=== PATIENT | female | born 1955 | race Caucasian/White ===

== ENCOUNTER 2018-04-05 11:24 | Emergency (ER) | payer MEDICARE, OTHER ==
[~2018-04-05] VITALS: Ht 170.2 cm; Wt 119.4 kg
[2018-04-05] MEDS ORDERED: aspirin 81mg tab.chew PO ONE (11:45)
[2018-04-05] MEDS ORDERED: ondansetron/PF 4mg/2ml inj IV ONE (11:55)
[2018-04-05] MEDS ORDERED: fentaNYL/PF 50MCG/1 ML 2ML syringe IV ONE (11:55)
[2018-04-05] MEDS ORDERED: labetalol 20mg/4ml (5mg/ml) syringe IV ONE (11:55)
[2018-04-05 12:19] LABS: BASOPHILS % (AUTO) 0.2 % (0-1); EOSINOPHILS # (AUTO) 0.1 X10'3 (0-0.9); EOSINOPHILS % (AUTO) 1.1 % (0-6); HEMATOCRIT 42.4 % (35.0-45.0); HEMOGLOBIN 14.1 g/dl (12.0-16.0); LYMPHOCYTES % (AUTO) 24.1 % (21-51); MEAN CORPUSCULAR HEMOGLOBIN 33.1 PG (27.0-31.0); MEAN CORPUSCULAR HGB CONC 33.3 % (33.0-36.5); MEAN CORPUSCULAR VOLUME 99.4 FL (78-98); MEAN PLATELET VOLUME 7.1 FL (7.4-10.4); MONOCYTES # (AUTO) 0.6 X10'3 (0-0.9); MONOCYTES % (AUTO) 7.8 % (2-12); NEUTROPHILS # (AUTO) 5.5 X10'3 (1.8-7.7); NEUTROPHILS % (AUTO) 66.8 % (42-75); PLATELET COUNT 336 X10'3 (140-440); RED BLOOD COUNT 4.27 X10'6 (4.20-5.60); RED CELL DISTRIBUTION WIDTH 14.4 % (11.5-14.5); WHITE BLOOD COUNT 8.2 X10'3 (4.5-11.0)
[2018-04-05 12:36] LABS: ALANINE AMINOTRANSFERASE 21 U/L (12-78); ALBUMIN 3.7 G/DL (3.4-5.0); ALBUMIN/GLOBULIN RATIO 0.9 (1.1-1.5); ALKALINE PHOSPHATASE 107 IU/L (46-116); ANION GAP 11 (8-16); ASPARTATE AMINO TRANSFERASE 23 U/L (10-37); BILIRUBIN,TOTAL 0.9 MG/DL (0.1-1.0); BLOOD UREA NITROGEN 10 MG/DL (7-18); BUN/CREATININE RATIO 12.8 (6.6-38.0); CALCIUM 9.1 MG/DL (8.5-10.1); CHLORIDE 99 MMOL/L (99-107); CREATININE 0.78 MG/DL (0.40-0.90); GLUCOSE 120 MG/DL (70-104); POTASSIUM 3.7 MMOL/L (3.5-5.1); SODIUM 138 MMOL/L (135-145); TOTAL CARBON DIOXIDE 27.6 MMOL/L (24-32); TOTAL PROTEIN 7.9 G/DL (6.4-8.2); eGFR 74 ML/MIN
[2018-04-05 12:45] LABS: MAGNESIUM 1.9 MG/DL (1.5-2.4)
[2018-04-05] MEDS ORDERED: ketorolac trometh. 30mg/ml inj. IV ONE (12:55)
[2018-04-05] MEDS ORDERED: proCHLORperazine 10 MG/2 ml inj IV ONE (12:55)
[2018-04-05] MEDS ORDERED: LISI-604 PO (12:55)
[2018-04-05] MEDS ORDERED: TRAM50TA2 PO (12:55)
[2018-04-05 13:40] VITALS: BP 205/120
== END 2018-04-05 13:41 | disposition home or self-care (01) ==
LOC: ER 11:25
DX: S33.5XXA Sprain of ligaments of lumbar spine, initial encounter (principal); I10 Essential (primary) hypertension; J45.909 Unspecified asthma, uncomplicated; F12.90 Cannabis use, unspecified, uncomplicated; Z88.5 Allergy status to narcotic agent; Z79.899 Other long term (current) drug therapy; W18.2XXA Fall in (into) shower or empty bathtub, initial encounter; Y93.89 Activity, other specified; Y92.002 Bathroom of unspecified non-institutional (private) residence as the place of occurrence of the external cause; Y99.8 Other external cause status
CPT/HCPCS: 36415; 70450; 71045; 72131; 80053; 83735; 83880; 84484; 85025; 93005; 96374; 96375; 99285; J0780; J1885; J2405; J3010; J3490

== ENCOUNTER 2018-04-10 11:08 | Emergency (ER) | payer MEDICARE, OTHER ==
[~2018-04-10] VITALS: Ht 172.7 cm; Wt 101.0 kg
[~2018-04-10 11:08] MED LIST: LISI-604 PO; TRAM50TA2 PO
[2018-04-10] MEDS ORDERED: morphine 4 MG/ML inj SYRINge IM ONE (12:50)
[2018-04-10] MEDS ORDERED: diazepam 5mg tablet PO ONE (12:50)
[2018-04-10] MEDS ORDERED: ondansetron 4mg rapidly disintigrating tab PO ONE (12:50)
[2018-04-10 14:00] VITALS: BP 178/122
[2018-04-10] MEDS ORDERED: HYDR-4384 PO (14:01)
[2018-04-10] MEDS ORDERED: ONDA4TAB9 PO (14:01)
[2018-04-10] MEDS ORDERED: IBUP-1984 PO (14:01)
[2018-04-10] MEDS ORDERED: CYCL-1 PO (14:05)
== END 2018-04-10 14:08 | disposition home or self-care (01) ==
LOC: ER 11:09
DX: M54.5 Low back pain (principal); M62.830 Muscle spasm of back; J44.9 Chronic obstructive pulmonary disease, unspecified; G89.29 Other chronic pain; F12.90 Cannabis use, unspecified, uncomplicated; Z98.890 Other specified postprocedural states; Z88.5 Allergy status to narcotic agent; Z79.899 Other long term (current) drug therapy
CPT/HCPCS: 73502; 96372; 99284; J2270

== ENCOUNTER 2019-10-23 23:39 | Emergency (ER) | payer MEDICARE ==
[~2019-10-23] VITALS: Ht 170.2 cm; Wt 113.6 kg
[~2019-10-23 23:39] MED LIST changes: +CYCL-1 PO; -TRAM50TA2 PO; +rocuronium 10mg/ml inj IV ONE; +sod chloride 0.9% 10ml flush syringe IV ONE
--- NOTE | 2019-10-23 23:43 | NUR ---
full team at bs to receive the pat etomidate 40mg @2344 100 mg rocuronium @ glucose 154
[2019-10-23] MEDS ORDERED: etomidate 2mg/ml inj. IV STA (23:44)
[2019-10-23] MEDS ORDERED: rocuronium 10mg/ml inj IV STA (23:44)
[2019-10-23] MEDS ORDERED: MIDAZolam 5mg/ml 2ml vial IV STA (23:44)
[2019-10-23] MEDS ORDERED: iohexol 350MG/ML 100ml bottle IV ONE (23:46)
[2019-10-23] MEDS ORDERED: midazolam 2 mg/2 ml injection ONE (23:47)
[2019-10-23] MEDS ORDERED: etomidate 2mg/ml inj. IV ONE (23:50)
[2019-10-23] MEDS ORDERED: rocuronium 10mg/ml inj IV ONE (23:50)
[2019-10-23] MEDS ORDERED: labetalol 20mg/4ml (5mg/ml) syringe IV ONE (23:50)
[2019-10-23] MEDS ORDERED: MIDAZolam 5mg/ml 2ml vial IV ONE (23:50)
[2019-10-23] MEDS ORDERED: labetalol 20mg/4ml (5mg/ml) syringe IV STA (23:51)
[2019-10-23] MEDS ORDERED: niCARDipine-NS 40mg/200ml IVPB 200 ML IV SCH (23:54)
--- NOTE | 2019-10-23 23:55 | NUR ---
pt to CT with RN, and pharmacist
--- NOTE | 2019-10-23 23:55 | NUR ---
4mg versed pulled from medication omnicell emergently due to verbal order from MD Fraser and rapid sequence intubation.
--- NOTE | 2019-10-24 | NUR ---
2345 PT NOW INTUBATED, XRAY AT BEDSIDE, DR DRAKE REPROTS HE WANTS PT TO GO TO CT NOW, HE WILL POSTPONE XRAY , PRIORITIZE CT.
--- NOTE | 2019-10-24 00:11 | NUR ---
back from ct
[2019-10-24] MEDS ORDERED: labetalol 20mg/4ml (5mg/ml) syringe IV STA (00:14)
--- NOTE | 2019-10-24 00:14 | NUR ---
dr santiago at the and vo another labetolol 10 mg IV so ordered. Stroke RN at . Li working on a central line now.
[2019-10-24 00:16] LABS: BASOPHILS % (AUTO) 0.4 % (0-1); EOSINOPHILS # (AUTO) 0.3 X10'3 (0-0.9); EOSINOPHILS % (AUTO) 2.4 % (0-6); HEMATOCRIT 41.1 % (35.0-45.0); HEMOGLOBIN 13.6 g/dl (12.0-16.0); LYMPHOCYTES # (AUTO) 5.2 X10'3 (1.1-4.8); LYMPHOCYTES % (AUTO) 42.6 % (21-51); MEAN CORPUSCULAR HEMOGLOBIN 31.7 PG (27.0-31.0); MEAN CORPUSCULAR HGB CONC 33.1 g/dL (33.0-36.5); MEAN CORPUSCULAR VOLUME 95.9 FL (78-98); MEAN PLATELET VOLUME 7.8 FL (7.4-10.4); MONOCYTES # (AUTO) 0.7 X10'3 (0-0.9); NEUTROPHILS # (AUTO) 5.9 X10'3 (1.8-7.7); NEUTROPHILS % (AUTO) 48.6 % (42-75); PLATELET COUNT 250 X10'3 (140-440); RED BLOOD COUNT 4.29 X10'6 (4.20-5.60); RED CELL DISTRIBUTION WIDTH 14.5 % (11.5-14.5); WHITE BLOOD COUNT 12.2 X10'3 (4.5-11.0)
[2019-10-24 00:28] LABS: ALANINE AMINOTRANSFERASE 17 U/L (12-78); ALBUMIN 3.9 G/DL (3.4-5.0); ALBUMIN/GLOBULIN RATIO 1.1 (1.1-1.5); ALKALINE PHOSPHATASE 111 IU/L (46-116); ANION GAP 11 (8-16); ASPARTATE AMINO TRANSFERASE 23 U/L (10-37); BILIRUBIN,TOTAL 0.5 MG/DL (0.1-1.0); BLOOD UREA NITROGEN 15 MG/DL (7-18); BUN/CREATININE RATIO 16.5 (6.6-38.0); CALCIUM 8.6 MG/DL (8.5-10.1); CHLORIDE 104 MMOL/L (99-107); CREATININE 0.91 MG/DL (0.40-0.90); ETHANOL < 0.010 GM/DL (0.0-0.010); GLUCOSE 146 MG/DL (70-104); SODIUM 142 MMOL/L (135-145); TOTAL PROTEIN 7.6 G/DL (6.4-8.2); eGFR 62 ML/MIN
[2019-10-24] MEDS ORDERED: phenobarbital inj 130 MG in normal saline 100ml IV soln 100 ML IV ONE (00:35)
--- NOTE | 2019-10-24 00:42 | NUR ---
RT at bedside performing ABG draw.
[2019-10-24 00:53] VITALS: BP 153/83
[2019-10-24 00:53] LABS: CLARITY,URINE SLIGHTLY CLOUDY (Clear); COLOR,URINE YELLOW (Yellow); GLUCOSE, URINE NEGATIVE (Neg); KETONES,URINE NEGATIVE (Neg); LEUKOCYTE ESTERASE ,URINE NEGATIVE (Neg); NITRITES, URINE NEGATIVE (Neg); OCCULT BLOOD,URINE TRACE-INTACT (Neg); PH,URINE 7.5 (4.8-8.0); PROTEIN,URINE 100 mg/dl (Neg); UROBILINOGEN,URINE 0.2 E.U/dL (0.2-1.0)
[2019-10-24 00:54] LABS: PARTIAL THROMBOPLASTIN TIME 24 SECONDS (22-32)
[2019-10-24 00:56] LABS: ABG BASE EXCESS 1.6 mmol/L (-2.0-3.0); ABG HCO3 27.4 mmol/L (22.0-26.0); ABG OXYGEN SATURATION 95.6 % (95-98); ABG PCO2 (T) 45.3 mmHg (35.0-45.0); ABG PH (T) 7.395 (7.350-7.450); ABG PO2 (T) 73.7 mmHg (83-108); FCOHb 0.7 % (0.5-1.5); FMetHb 0.2 % (0.3-1.12); FO2Hb 94.7 % (94-100); PATIENT TEMPERATURE 36.1; PEEP 5 cm H2O; RESPIRATORY RATE 16 b/min; TIDAL VOLUME 450 mL; TOTAL HEMOGLOBIN 14.7 G/dl (12.0-16.0)
[2019-10-24 01:02] LABS: UA COLLECTION TYPE FOLEY CATH; URINE AMPHETAMINE SCREEN NEGATIVE (Neg); URINE BARBITUATE SCREEN NEGATIVE (Neg); URINE BENZODIAZEPINES SCREEN POSITIVE (Neg); URINE CANNABINOID SCREEN POSITIVE (Neg); URINE COCAINE SCREEN NEGATIVE (Neg); URINE METHADONE SCREEN NEGATIVE (Neg); URINE OPIATE SCREEN NEGATIVE (Neg); URINE PHENCYCLIDINE SCREEN NEGATIVE (Neg)
[2019-10-24 01:03] LABS: BACTERIA,URINE 1+ /HPF (Neg); RBC,URINE 0-2 /HPF (0-2); SQUAMOUS EPITHELIAL CELL,UR FEW /LPF (FEW)
--- NOTE | 2019-10-24 01:14 | NUR ---
Called report to [facility] and spoke with ANKIT Real. All questions answered and relevant information given.
== END 2019-10-24 01:14 | disposition short-term general hospital (02) ==
LOC: ER 23:40
DX: I63.9 Cerebral infarction, unspecified (principal); I16.1 Hypertensive emergency; J44.9 Chronic obstructive pulmonary disease, unspecified; G89.29 Other chronic pain; F12.90 Cannabis use, unspecified, uncomplicated; Z98.890 Other specified postprocedural states; Z88.5 Allergy status to narcotic agent; Z79.899 Other long term (current) drug therapy
CPT/HCPCS: 31500; 36415; 36556; 36600; 70450; 70496; 70498; 71045; 80053; 80305; 80320; 81001; 82803; 82948; 85018; 85025; 85610; 85730; 86885; 86900; 86901; 87077; 87088; 87186; 93005; 96374; 96375; 99291; J2250; Q9967; 94002; J3490